=== PATIENT | female | born 1955 | race American Indian/Alaskan Native ===

== ENCOUNTER 2018-08-09 09:01 | Outpatient (CLI) | payer MEDICARE, MEDICAID | END 2018-08-09 09:02 | disposition home or self-care (01) | LOC: C.LAB 09:01 | DX: B20 Human immunodeficiency virus [HIV] disease (principal) ==

== ENCOUNTER 2018-08-09 10:52 | Outpatient (CLI) | payer MEDICARE, MEDICAID | END 2018-08-09 10:53 | disposition home or self-care (01) | LOC: C.MAMMO 10:53 ==